=== PATIENT | female | born 1945 | race Caucasian/White ===

== ENCOUNTER 2020-09-15 16:58 | Outpatient (CLI) | payer MEDICARE, OTHER, SELFPAY | END 2020-09-15 16:59 | disposition home or self-care (01) | LOC: ANHCOVIDVC 16:58 | PROVIDERS: PCP Internal Medicine | DX: Z23 Encounter for immunization (principal) | CPT/HCPCS: 0001A; 91300 ==

== ENCOUNTER 2020-10-06 16:56 | Outpatient (CLI) | payer MEDICARE, OTHER, SELFPAY | END 2020-10-06 16:57 | disposition home or self-care (01) | LOC: ANHCOVIDVC 16:56 | PROVIDERS: PCP Internal Medicine | DX: Z23 Encounter for immunization (principal) | CPT/HCPCS: 0002A; 91300 ==